=== PATIENT | male | born 1965 | race Caucasian/White ===

== ENCOUNTER 2019-11-27 05:06 | Emergency (ER) | payer MEDICAID ==
[~2019-11-27] VITALS: Ht 182.9 cm; Wt 113.6 kg
[2019-11-27] MEDS ORDERED: epiNEPHrine 1 mg/ml inj ONE (05:10)
[2019-11-27] MEDS ORDERED: epiNEPHrine 1 mg/ml inj IM STA (05:12)
[2019-11-27] MEDS ORDERED: diphenhydrAMINE 50 mg/ml inj IV ONE (05:15)
[2019-11-27] MEDS ORDERED: famotidine/PF 10 mg/ml inj IV ONE (05:15)
[2019-11-27] MEDS ORDERED: methylPREDNISolone sod succ 125mg/2ml vial IV ONE (05:15)
--- NOTE | 2019-11-27 05:25 | NUR ---
OVERRIDE FEATURE USED TO PULL EPI PT WAS HAVING AN ACUTE ALLERGIC REACTION
[2019-11-27 06:06] LABS: ALANINE AMINOTRANSFERASE 23 U/L (12-78); ALBUMIN 3.6 G/DL (3.4-5.0); ALBUMIN/GLOBULIN RATIO 1.1 (1.1-1.5); ALKALINE PHOSPHATASE 89 IU/L (46-116); ANION GAP 16 (8-16); ASPARTATE AMINO TRANSFERASE 16 U/L (10-37); BILIRUBIN,TOTAL 0.7 MG/DL (0.1-1.0); BLOOD UREA NITROGEN 12 MG/DL (7-18); CALCIUM 8.6 MG/DL (8.5-10.1); CHLORIDE 104 MMOL/L (99-107); CREATININE 0.86 MG/DL (0.60-1.10); GLUCOSE 162 MG/DL (70-104); POTASSIUM 3.6 MMOL/L (3.5-5.1); SODIUM 137 MMOL/L (135-145); TOTAL CARBON DIOXIDE 17.2 MMOL/L (24-32); TOTAL PROTEIN 6.8 G/DL (6.4-8.2); eGFR > 90 ML/MIN
[2019-11-27 06:09] LABS: BASOPHILS # (AUTO) 0.1 X10'3 (0-0.2); EOSINOPHILS # (AUTO) 0.1 X10'3 (0-0.9); HEMOGLOBIN 12.6 g/dl (14.0-17.9)
[2019-11-27 06:12] LABS: BASOPHILS % (AUTO) 0.3 % (0-1); EOSINOPHILS % (AUTO) 0.3 % (0-6); HEMATOCRIT 38.5 % (42.0-52.0); LYMPHOCYTES # (AUTO) 14.3 X10'3 (1.1-4.8); MEAN CORPUSCULAR HGB CONC 32.8 g/dL (33.0-36.5); MEAN CORPUSCULAR VOLUME 97.7 FL (78-98); MEAN PLATELET VOLUME 8.6 FL (7.4-10.4); MONOCYTES # (AUTO) 0.9 X10'3 (0-0.9); MONOCYTES % (AUTO) 4.1 % (2-12); NEUTROPHILS % (AUTO) 31.3 % (42-75); PLATELET COUNT 62 X10'3 (140-440); RED BLOOD COUNT 3.95 X10'6 (4.70-6.10); RED CELL DISTRIBUTION WIDTH 15.4 % (11.5-14.5); WHITE BLOOD COUNT 22.3 X10'3 (4.5-11.0)
--- NOTE | 2019-11-27 07:42 | NUR ---
PT TALKING OVER THE PHONE ,VITALS STABLE 97-98% SPO2 I
--- NOTE | 2019-11-27 07:43 | NUR ---
SPO2 97-98% ON RA,PT STATED THAT HE STILL HAVE HARD TIME SWALLOWING .PT LFT SIDE ORAL MUCOSA IS SWOLLEN DUE TO DENTAL PROBLEM.
[2019-11-27 07:44] LABS: PLATELET ESTIMATE DECREASED; TOTAL CELLS COUNTED 100
[2019-11-27 07:46] LABS: POLYCHROMASIA FEW; SCHISTOCYTES FEW; SMUDGE CELLS 2+; STOMATOCYTES FEW
--- NOTE | 2019-11-27 08:11 | NUR ---
NO DISTRESS NOTED AT THIS TIME,PT RESTING IN UPRIGHT POSITION SPO2 97%ON RA,PT RR 17 EVEN AND UNLABORED.PT STATED THAT HIS SWELLING IS REDUCING BUT STILL HAVING PAIN WHILE TRY TO SWALLOW.
[2019-11-27] MEDS ORDERED: iohexol 300mg/ml 100ml inj. ONE (08:47)
[2019-11-27 08:48] VITALS: BP 161/88
--- NOTE | 2019-11-27 08:49 | NUR ---
PATIENT REPORTS FEELING BETTER SATURATION 97% RA.RESPIRATIONS UNLABORED AND REGULAR.
[2019-11-27] MEDS ORDERED: MESSAGE TO NURSING PO NR (09:30)
[2019-11-27] MEDS ORDERED: clindamycin phosphate inj 600 MG in normal saline 50ml IV soln 50 ML IV ONE (09:55)
[2019-11-27] MEDS ORDERED: clindamycin 600mg/D5W 50ml 50 ML IV ONE (09:55)
[2019-11-27] MEDS ORDERED: clindamycin 600mg/D5W 50ml 50 ML IV SCH (09:55)
--- NOTE | 2019-11-27 11:26 | NUR ---
pt dc'd to go directly to [facility], has ride with family, Dr Salinas gave verbal order to keep peripheral IV to intact
== END 2019-11-27 11:31 | disposition short-term general hospital (02) ==
LOC: ER 05:07
DX: T78.3XXA Angioneurotic edema, initial encounter (principal); T78.40XA Allergy, unspecified, initial encounter; J36 Peritonsillar abscess; J39.1 Other abscess of pharynx; I10 Essential (primary) hypertension; E11.9 Type 2 diabetes mellitus without complications; Z79.899 Other long term (current) drug therapy; X58.XXXA Exposure to other specified factors, initial encounter
CPT/HCPCS: 36415; 70491; 80053; 85007; 85025; 93005; 96365; 96372; 96375; 99291; J0171; J1200; J2930; J3490; Q9967

== ENCOUNTER 2020-08-08 11:37 | Emergency (ER) | payer MEDICAID ==
[~2020-08-08] VITALS: Ht 182.9 cm; Wt 105.1 kg
[2020-08-08 13:10] LABS: EOSINOPHILS # (AUTO) 0.1 X10'3 (0-0.9); HEMOGLOBIN 14.4 g/dl (14.0-17.9); MEAN CORPUSCULAR HGB CONC 32.8 g/dL (33.0-36.5); RED CELL DISTRIBUTION WIDTH 16.3 % (11.5-14.5)
[2020-08-08 13:12] LABS: BASOPHILS # (AUTO) 0.1 X10'3 (0-0.2); BASOPHILS % (AUTO) 0.4 % (0-1); EOSINOPHILS % (AUTO) 0.3 % (0-6); LYMPHOCYTES # (AUTO) 24.6 X10'3 (1.1-4.8); LYMPHOCYTES % (AUTO) 80.6 % (21-51); MEAN CORPUSCULAR HEMOGLOBIN 31.8 PG (27.0-31.0); MEAN CORPUSCULAR VOLUME 96.9 FL (78-98); MEAN PLATELET VOLUME 8.7 FL (7.4-10.4); MONOCYTES # (AUTO) 0.3 X10'3 (0-0.9); MONOCYTES % (AUTO) 0.9 % (2-12); NEUTROPHILS # (AUTO) 5.5 X10'3 (1.8-7.7); NEUTROPHILS % (AUTO) 17.8 % (42-75); PLATELET COUNT 92 X10'3 (140-440); RED BLOOD COUNT 4.54 X10'6 (4.70-6.10)
[2020-08-08 13:15] LABS: WHITE BLOOD COUNT 30.6 X10'3 (4.5-11.0)
[2020-08-08] MEDS ORDERED: benzonatate 100mg capsule PO ONE (13:30)
[2020-08-08 13:40] LABS: ALANINE AMINOTRANSFERASE 32 U/L (12-78); ALBUMIN 4.1 G/DL (3.4-5.0); ALBUMIN/GLOBULIN RATIO 1.6 (1.1-1.5); ALKALINE PHOSPHATASE 98 IU/L (46-116); ANION GAP 10 (8-16); ASPARTATE AMINO TRANSFERASE 22 U/L (10-37); BILIRUBIN,TOTAL 0.4 MG/DL (0.1-1.0); BLOOD UREA NITROGEN 14 MG/DL (7-18); BUN/CREATININE RATIO 14.7 (5.4-32.0); CALCIUM 8.9 MG/DL (8.5-10.1); CHLORIDE 105 MMOL/L (99-107); CREATININE 0.95 MG/DL (0.60-1.10); GLUCOSE 153 MG/DL (70-104); POTASSIUM 4.2 MMOL/L (3.5-5.1); SODIUM 138 MMOL/L (135-145); TOTAL CARBON DIOXIDE 22.6 MMOL/L (24-32); TOTAL PROTEIN 6.7 G/DL (6.4-8.2); eGFR 82 ML/MIN
[2020-08-08 13:46] LABS: TOTAL CELLS COUNTED 100
[2020-08-08 13:47] LABS: ANISOCYTOSIS 1+; PLATELET ESTIMATE DECREASED
[2020-08-08 14:55] VITALS: BP 146/81
== END 2020-08-08 14:57 | disposition home or self-care (01) ==
LOC: ER 11:38
DX: J06.9 Acute upper respiratory infection, unspecified (principal); Z20.822 Contact with and (suspected) exposure to COVID-19; C91.10 Chronic lymphocytic leukemia of B-cell type not having achieved remission; I10 Essential (primary) hypertension; E11.9 Type 2 diabetes mellitus without complications; Z88.1 Allergy status to other antibiotic agents
CPT/HCPCS: 36415; 71045; 80053; 83880; 84484; 85007; 85025; 87635; 93005; 99285; C9803